=== PATIENT | female | born 1945 | race Caucasian/White ===

== ENCOUNTER 2024-06-28 00:30 | Day surgery (SDC) | payer MEDICARE, SELFPAY ==
[2024-06-22 15:25] VITALS: BMI 44.2
--- OUTSIDE RECORDS SUMMARY | 2024-06-28 00:34 | XMS_ITS ---
Author Organization [facility] Care Team Providers Care Supervisor Ore Dressing Name Role Phone Preet Medina Unavailable Unavailable Prince Barba Unavailable Unavailable Allergies and adverse reactions Code CodeSystem Substance Reaction Severity StartDate Concern Status TAPE Unknown 06/08/2017 active Care Team Name Role Address Phone Organization Dates Prince Barba PCP [address] [place], [address], [place] (Office): : [facility] 05/18/2018 - 06/06/2020 Preet Medina Attending Physician [address], [address], [place] (Cell): [facility] 05/18/2018 - 06/06/2020 Immunizations Immunization Status Vaccine Details Vaccine Code CodeSystem Date Notes Influenza completed Influenza, high-dose, split virus, quadrivalent, injectable, preservative free 197 CVX created date: 01/09/2020 administer ed date: 12/29/2019 Influenza completed Influenza, high-dose, split virus, quadrivalent, injectable, preservative free lotNumber: [id number] expiry: 09/13/2019 Mfg: Seqirus afluria quadrivalent Given 0.5 ml Right Deltoid intramuscularly 197 CVX created date: 01/15/2019 consent date: 01/15/2019 administer ed date: 01/10/2019 Educated by samanta esparza on 01/09/2019 Influenza completed Influenza, high-dose, split virus, quadrivalent, injectable, preservative free lotNumber: [id number] expiry: 09/15/2018 Mfg: Afluria Given 0.5 ml Left Deltoid intramuscularly 197 CVX created date: 01/07/2018 consent date: 01/07/2018 administer ed date: 01/07/2018 Influenza normal Influenza, high-dose, split virus, quadrivalent, injectable, preservative free 197 CVX created date: 06/21/2017 consent date: 06/21/2017 Pneumovax Dose 1 normal created date: 06/21/2017 consent date: 06/21/2017 2015 TB 2 Step Mantoux Skin Test completed tuberculin skin test; unspecified formulation lotNumber: [id number] expiry: 11/05/2019 Mfg: sonofil pasteur limited Given 0.1 ml Right Forearm intradermally Step 2 of Multi-step with next step required 98 CVX created date: 07/17/2017 consent date: 07/17/2017 administer ed date: 07/17/2017 TB 2 Step Mantoux Skin Test completed tuberculin skin test; unspecified formulation lotNumber: [id number] expiry: 02/11/2018 Mfg: Sanofi Pasteur Given 0.1 ml Left Forearm intradermally Step 1 of Multi-step with next step required 98 CVX created date: 06/11/2017 consent date: 06/11/2017 administer ed date: 06/09/2017 SARS-COV-2 (COVID-19) completed lotNumber: [id number] expiry: 08/25/2020 Mfg: Pfizer Given 1.0 dose Right Deltoid intramuscularly Step 2 of Multi-step with next step required created date: 05/27/2020 consent date: 05/27/2020 administer ed date: 05/20/2020 SARS-COV-2 (COVID-19) completed lotNumber: [id number] expiry: 05/27/2020 Mfg: Pfizer Given 1.0 dose Left Deltoid intramuscularly Step 1 of Multi-step with next step required created date: 04/15/2020 consent date: 04/15/2020 administer ed date: 04/08/2020 Educated by on 04/02/2020 Mental Status Section Date Assessment Total Score Description 06/06/2020 CAM 0 No delirium ind icated 05/10/2020 BIMS 15 cognitively int act CAM 0 No delirium ind icated PHQ-9 02 minimal depress ion Problems Problem # Description Date of onset Resolved Date Code CodeSystem Concern Status 1 COVID-19 04/28/[address] active 2 CONTACT WITH AND (SUSPECTED) EXPOSURE TO OTHER VIRAL COMMUNICABLE DISEASES 04/03/[address] active 3 COUGH 04/03/[address] active 4 DYSPNEA, UNSPECIFIED 04/03/[address] active 5 FEVER, UNSPECIFIED 04/03/[address] active 6 ACQUIRED ABSENCE OF OTHER SPECIFIED PARTS OF DIGESTIVE TRACT 01/09/[address] active 7 CALCULUS OF GALLBLADDER WITH ACUTE CHOLECYSTITIS WITH OBSTRUCTION 01/09/2004/28/[address] completed 8 OBESITY, UNSPECIFIED 01/09/[address] active 9 TYPE 2 DIABETES MELLITUS WITH DIABETIC NEUROPATHY, UNSPECIFIED 01/09/[address] active 10 METHICILLIN RESISTANT STAPHYLOCOCCUS AUREUS INFECTION THE CAUSE OF DISEASES CLASSIFIED ELSEWHERE 02/04/20 19 05/10/[address] completed 11 ATHEROSCLEROTIC HEART DISEASE OF [place] CORONARY ARTERY WITHOUT ANGINA PECTORIS 05/18/[address] active 12 CHRONIC EMBOLISM AND THROMBOSIS OF UNSPECIFIED DEEP VEINS OF LOWER EXTREMITY, BILATERAL 05/18/[address] active 13 CONSTIPATION, UNSPECIFIED 05/18/[address] active 14 DEPENDENCE ON WHEELCHAIR 05/18/[address] active 15 HALF-WAY (CURRENT) USE OF ASPIRIN 05/18/[address] active 16 MORBID (SEVERE) OBESITY DUE TO EXCESS CALORIES 05/18/[address] active 17 OTHER SPECIFIED SOFT TISSUE DISORDERS 05/18/[address] active 18 PERIPHERAL VASCULAR DISEASE, UNSPECIFIED 05/18/[address] active 19 UNSPECIFIED COMBINED SYSTOLIC (CONGESTIVE) AND DIASTOLIC (CONGESTIVE) HEART FAILURE 05/18/[address] active 20 ENCOUNTER FOR IMMUNIZATION 01/08/20 18 05/26/[address] completed 21 ALLERGY, UNSPECIFIED, SEQUELA 09/15/[address] active 22 ESSENTIAL (PRIMARY) HYPERTENSION 09/15/[address] active 23 OSTEOARTHRITIS 09/15/19 18 10/11/[address] completed 24 AGE-RELATED OSTEOPOROSIS WITHOUT CURRENT PATHOLOGICAL FRACTURE 06/09/[address] active 25 ANEMIA, UNSPECIFIED 06/09/[address] active 26 BILATERAL PRIMARY OSTEOARTHRITIS OF KNEE 06/09/[address] active 27 CELLULITIS OF UNSPECIFIED PART OF LIMB 06/09/19 18 05/26/[address] completed 28 DIFFICULTY IN WALKING, NOT ELSEWHERE CLASSIFIED 06/09/[address] active 29 GASTRO-ESOPHAGEAL REFLUX DISEASE WITHOUT ESOPHAGITIS 06/09/[address] active 30 IRRITABLE BOWEL SYNDROME, UNSPECIFIED 06/09/[address] active 31 MIXED HYPERLIPIDEMIA 06/09/[address] active 32 MUSCLE WEAKNESS (GENERALIZED) 06/09/[address] active 33 NONINFECTIVE GASTROENTERITIS AND COLITIS, UNSPECIFIED 06/09/19 18 05/26/[address] completed 34 OVERACTIVE BLADDER 06/09/[address] active 35 PAIN IN LEFT KNEE 06/09/[address] active 36 PAIN IN RIGHT KNEE 06/09/[address] active 37 REPEATED FALLS 06/09/[address] active 38 TYPE 2 DIABETES MELLITUS WITHOUT COMPLICATIONS 06/09/[address] active 39 URINARY TRACT INFECTION, SITE NOT SPECIFIED 06/09/19 18 05/26/[address] completed Reason for Referral No Reasons for Referral Entered Social History Social History Observation Description Start Date End Date Code Code System Current Smoking Status Tobacco smoking consumption unknown 532770713 SNOMED CT Sex Assigned At Female 1945 97142-0 [facility] Vital Signs Code Code System Vitals Name Values and Units Timing Information 2339-0 [facility] Blood Sugar Ridjp=792.0 Units=mg/dL 06/06/2020 99935-2 [facility] Pain Level Value=3.0 06/06/2020 9279-1 [facility] Respiratory Rate Value=18.0 Units=/m in 06/06/2020 8310-5 [facility] Body Temperature Value=97.1 Units= F 06/06/2020 8867-4 [facility] Heart rate Value=78.0 Units=/min 01/2021 14678-7 [facility] O2 % dC Oximetry Value=94.0 Units= % 06/06/2020 8462-4 [facility] Blood Pressure-Diastolic Value=77 Un its=mmHg 06/05/2020 8480-6 [facility] Blood Pressure-Systolic Xlakg=458 Un its=mmHg 06/05/2020 48980-2 [facility] Weight Gboyg=315.4 Units=Lbs 05/2020 8302-2 [facility] Height Value=65.0 Units=Inches 06/10/2017
--- OUTSIDE RECORDS SUMMARY | 2024-06-28 00:34 | XMS_ITS | Clinical Summary ---
Author Organization [facility] Address [address] [place] [address] Care Team Providers Care Foreman Shipping Department Name Role Phone Prince Barba MD Primary Care Provider [phone] Source Comments [facility],non-owned Affiliates and Associated Physician Practices is amultiple site organization consisting of ambulatory clinics and hospital sitesin [place], [place], [place] and [place]. This disclosure is being madepursuant to the Care Everywhere program and may not contain all information available regarding this patient. Last updated 17.[facility] Allergies Active Allergy Reactions Criticality Noted Date Comments Adhesive Sensitivity Rash Medium 06/05/2017 Medications * Be aware that medications may not be up to date on this document. Alwaysverify current medications with the patient. Medication Sig Dispensed Refills Start Date End Date Status insulin glargine (LANTUS) penIndications:Typ e 2 Diabetes Mellitus Inject 50 Units subcutaneously at bedtime Reasons: Type 2 Diabetes Active pantoprazole EC (PROTONIX) 40 MG tabletIndications: Gastroesophageal Reflux Disease Take 40 mg by mouth once daily Reasons: Gastroesophageal Reflux Disease Active Multiple Vitamins-Minerals (SENIOR MULTIVITAMIN PLUS PO) Take 1 tablet by mouth at bedtime Active silver sulfADIAZINE (SILVADENE) 1 % cream Apply to affected area once daily Apply as directed Active simvastatin (ZOCOR) 10 MG tabletIndications: Hyperlipidemia Take 10 mg by mouth at bedtime Reasons: High Amount of Fats in the Blood Active metoprolol succinate XL 24hr (TOPROL XL) 25 MG tablet Take 25 mg by mouth once daily Take with 50mg for total of 75mg/day Active metoprolol succinate XL 24hr (TOPROL XL) 50 MG tabletIndications: Hypertension Take 50 mg by mouth once daily Take with 25mg for total of 75mg/day Reasons: High Blood Pressure Disorder Active cetirizine (ZYRTEC) 10 MG tablet Take 10 mg by mouth once daily Active Miconazole Nitrate 2 % Use once daily As directed Active dicyclomine (BENTYL) 10 MG capsuleIndications :muscle spasms Take 10 mg by mouth 2 times daily Reasons: muscle spasms Active oxybutynin (DITROPAN) 5 MG tabletIndications: Overactive Bladder Take 5 mg by mouth 2 times daily Reasons: Overactive Bladder Active mesalamine CR (PENTASA) 500 MG capsuleIndications :Ulcerative Colitis Take 1,000 mg by mouth 2 times daily Reasons: Ulcerated Colon Active insulin lispro (HUMALOG;ADMELOG) 100 UNIT/ML penIndications:Typ e 2 Diabetes Mellitus Inject subcutaneously 4 times daily - before meals & nightly 61-150 = 0 units 151-200 = 2 units 201-250 = 4 units 251-300 = 6 units 301-350 = 8 units 351-400 = 10 units 401-999 = call 911 Reasons: Type 2 Diabetes Active sodium chloride (OCEAN NASAL SPRAY) 0.65 % nasal spray Villanueva 2 sprays into the nose 6 times daily while awake Active aspirin (ASPIRIN) 81 MG chew tablet Take 1 tablet by mouth once daily 01/10/2020 Active isosorbide mononitrate CR 24hr (IMDUR) 30 MG tablet Take 1 tablet by mouth once daily 01/10/2020 Active gabapentin (NEURONTIN) 300 MG capsule Take 1 capsule by mouth 2 times daily 01/09/2020 Active hydrALAZINE (APRESOLINE) 100 MG tablet Take 1 tablet by mouth 2 times daily 01/09/2020 Active amLODIPine (NORVASC) 10 MG tablet Take 1 tablet by mouth once daily 01/10/2020 Active furosemide (LASIX) 40 MG tablet Take 1 tablet by mouth once daily 01/10/2020 Active Active Problems Problem Noted Date Diagnosed Date Sepsis 12/27/2019 Acute encephalopathy 12/27/2019 Immunizations Name Administration Dates Next Due INFLUENZA VACCINE, HIGH-DOSE , QUADR. (FLUZONE HIGH-DOSE QUADRIVALENT; 65Y+), 0.7 ML (HD-IIV4) 12/29/2019 Social History Tobacco Use Types Packs/Day Years Used Date Smoking Tobacco: Never Smokeless Tobacco: Never Sex and Gender Information Value Date Recorded Sex Assigned at Not on file Gender Identity Not on file Sexual Orientation Not on file Last Filed Vital Signs Vital Sign Reading Time Taken Comments Blood Pressure 153/69 01/09/2020 3:22 PM CDT Pulse 88 01/09/2020 3:22 PM CDT Temperature 36.9 C (98.5 F) 01/09/2020 3:22 PM CDT Respiratory Rate 18 01/09/2020 3:22 PM CDT Oxygen Saturation 91% 01/09/2020 3:22 PM CDT Inhaled Oxygen Concentration - - Weight 135.2 kg (298 lb) 01/09/2020 4:40 AM CDT Height 165.1 cm (5' 5 ) 12/31/2019 7:59 PM CDT Body Mass Index 49.59 12/31/2019 7:59 PM CDT Plan of Treatment Health Maintenance Due Date Last Done Comments BONE DENSITY TESTING 1945 DTAP/TDAP/TD VACCINES (1 - Tdap) 02/04/1964 PNEUMOCOCCAL VACCINE 50+ (1 of 1 - PCV) 1995 ZOSTER VACCINE (1 of 2) 1995 Respiratory Syncytial Virus (RSV) Vaccine Pt: or over 60 yrs (1 - 1-dose 75+ series) 02/04/2020 COVID-19 VACCINE (1 - 2023- season) 2023 INFLUENZA VACCINE (#1) 2023 0, 01/11/2017, 02/07/2016, Additional history exists DEPRESSION SCREENING 03/29/2024 MEDICARE AWV CALENDAR YEAR 2024 HEPATITIS B VACCINE Aged Out No longe r eligible based on patient's age to complete this topic HIB VACCINE Aged Out No longer eligi ble based on patient's age to complete this topic HPV VACCINE Aged Out No longer eligi ble based on patient's age to complete this topic MENINGOCOCCAL (Group B) VACCINE SHARED DECISION-MAKING Aged Out No longer eligible based on patient's age to complete this topic MENINGOCOCCAL GROUPS A/C/Y/W VACCINE Aged Out No longer eligible based on patient's age to complete this topic Advance Directives Documents on File Type Date Recorded Patient [place] [employer] Expl anation Adv Directive/Living Will/POA 01/12/2020 7:15 PM * Full Code (Latest Code Status on File) Date Activated Date Inactivated Comments 12/27/2019 6:15 AM 01/09/2020 5:14 PM Care Teams Foreman Shipping Department Relationship Specialty Start Date End Date Prince Barba MD PCP - General Family Medicine 12/27/19
[2024-06-28 11:28] VITALS: BP 140/61; PULSE 81; RESP 18; TEMP 35.6; O2SAT 98; BMI 42.5
[2024-06-28] MEDS: LACTATED RINGERS 1,000 ML 150 ML IV CONT (11:49)
[2024-06-28] MEDS: DEXTROSE 50% 25 GM/50 ML SYRINGE IV PUSH (11:54)
[2024-06-28 12:11] LABS: Glucose Point of Care 54 mg/dl (65-105)
[2024-06-28 12:11] LABS: Glucose Point of Care 117 mg/dl (65-105)
--- NOTE | 2024-06-28 12:27 | PM.HPGS ---
History of Present Illness History of Present Illness Consent: Risks, benefits, and alternatives have been discussed and questions answered. Patient agrees to proceed with procedure. Chief complaint: Nausea,GERD Narrative: Faye Wilson is a 79 year old female with nausea, here for egd Review of Systems Review of Systems: All systems reviewed & are unremarkable except as noted in HPI and below PMFSH Past Medical History Medical History (Updated 06/27/24 @ 13:36 by Morales Macias DO) Diabetes type 2, controlled DVT (deep venous thrombosis) PVD (peripheral vascular disease) Hyperlipidemia Hypertension Crohn's disease IBS (irritable bowel syndrome) GERD (gastroesophageal reflux disease) Nausea & vomiting Family History Family History Father Family history of coronary artery disease, Onset Age: 33 Social History Social History Smoking status: Never smoker Alcohol intake: never Substance use: never Substance use type: does not use Living arrangements: halfway Spiritual care concerns: No Meds Home Medications and Allergies Home Medications ?Medication ?Instructions ?Recorded ?Confirmed ?Type albuterol sulfate 90 mcg/actuation 1 inh inhalation Q4H 04/26/24 06/28/24 History aerosol inhaler (Ventolin HFA) amlodipine 5 mg tablet (Norvasc) 5 mg PO DAILY 04/26/24 06/28/24 History aspirin 81 mg tablet,delayed 81 mg PO DAILY 04/26/24 06/28/24 History release (Adult Low Dose Aspirin) atorvastatin 40 mg tablet (Lipitor) 40 mg PO DAILY 04/26/24 06/28/24 History cetirizine 5 mg tablet 5 mg PO DAILY PRN allergy symptoms 04/26/24 06/22/24 History dicyclomine 10 mg capsule 10 mg PO BID 04/26/24 06/28/24 History gabapentin 300 mg capsule 300 mg PO DAILY 04/26/24 06/28/24 History insulin lispro 100 unit/mL 1 sliding scale dose subcut 04/26/24 06/28/24 History subcutaneous half-unit pen USEASDIRECTD (Humalog Josh KwikPen (U-100)) isosorbide dinitrate 20 mg tablet 20 mg PO BID 04/26/24 06/28/24 History loperamide 2 mg capsule 2 mg PO Q6H PRN loose stool 04/26/24 06/22/24 History magnesium oxide 500 mg capsule 500 mg PO DAILY 04/26/24 06/28/24 History mesalamine 500 mg capsule,extended 1,000 mg PO BID 04/26/24 06/28/24 History release (Pentasa) ondansetron 4 mg disintegrating 4 mg PO Q8H 04/26/24 06/28/24 History tablet spironolactone 25 mg tablet 25 mg PO DAILY 04/26/24 06/28/24 History Allergies Allergy/AdvReac Type Severity Reaction Status Date / Time adhesive tape Allergy Unknown Unknown Verified 06/28/24 11:34 Vital Signs Vital Signs - 24 hr 06/28/24 11:28 Temperature 96.0 F L Pulse Rate 81 Respiratory Rate 18 Blood Pressure 140/61 Pulse Oximetry 98 Oxygen Delivery Room Air Exam Const: General: cooperative and comfortable HENMT: Head: normal to inspection Neck: Neck: normal visual inspection Assessment and Plan Assessment and plan (1) Nausea & vomiting: Code(s): R11.2 - Nausea with vomiting, unspecified Status: Acute Assessment and Plan: egd with bx
--- NOTE | 2024-06-28 12:28 | P.PNAN_ITS ---
Anes - Initial Pre Proc Eval Procedure: Operation Date: 06/28/24 13:00 Proposed Procedures p Esophagogastroduodenoscopy - Raghu Ernst MD Date/Time: 06/28/24 12:28 Surgeon: Raghu Ernst MD Pre Op Diagnosis: Nausea,GERD Patient Data Age: 79 Gender: F Height: 1.63 m Weight: 112.5 kg Last Vital Signs Temp 35.6 C L 06/28/24 11:28 Pulse 81 06/28/24 11:28 Resp 18 06/28/24 11:28 BP 140/61 06/28/24 11:28 Pulse Ox 98 06/28/24 11:28 O2 Del Method Room Air 06/28/24 11:28 Allergies Allergy/AdvReac Type Severity Reaction Status Date / Time adhesive tape Allergy Unknown Unknown Verified 06/28/24 11:34 Home Medications ?Medication ?Instructions ?Recorded ?Confirmed ?Type albuterol sulfate 90 mcg/actuation 1 inh inhalation Q4H 04/26/24 06/28/24 History aerosol inhaler (Ventolin HFA) amlodipine 5 mg tablet (Norvasc) 5 mg PO DAILY 04/26/24 06/28/24 History aspirin 81 mg tablet,delayed 81 mg PO DAILY 04/26/24 06/28/24 History release (Adult Low Dose Aspirin) atorvastatin 40 mg tablet (Lipitor) 40 mg PO DAILY 04/26/24 06/28/24 History cetirizine 5 mg tablet 5 mg PO DAILY PRN allergy symptoms 04/26/24 06/22/24 History dicyclomine 10 mg capsule 10 mg PO BID 04/26/24 06/28/24 History gabapentin 300 mg capsule 300 mg PO DAILY 04/26/24 06/28/24 History insulin lispro 100 unit/mL 1 sliding scale dose subcut 04/26/24 06/28/24 History subcutaneous half-unit pen USEASDIRECTD (Humalog Josh KwikPen (U-100)) isosorbide dinitrate 20 mg tablet 20 mg PO BID 04/26/24 06/28/24 History loperamide 2 mg capsule 2 mg PO Q6H PRN loose stool 04/26/24 06/22/24 History magnesium oxide 500 mg capsule 500 mg PO DAILY 04/26/24 06/28/24 History mesalamine 500 mg capsule,extended 1,000 mg PO BID 04/26/24 06/28/24 History release (Pentasa) ondansetron 4 mg disintegrating 4 mg PO Q8H 04/26/24 06/28/24 History tablet spironolactone 25 mg tablet 25 mg PO DAILY 04/26/24 06/28/24 History Laboratory Tests 06/28/24 06/28/24 11:50 12:09 POC Capillary Glucose 54 L* mg/dl 117 H mg/dl (65-105) (65-105) Patient hx anesthesia problems: none Family hx anesthesia problems: none Results Review: All pre-operative results and documents have been reviewed as part of the pre- operative evaluation. [facility] Past Medical History Medical History Diabetes type 2, controlled DVT (deep venous thrombosis) PVD (peripheral vascular disease) Hyperlipidemia Hypertension Crohn's disease IBS (irritable bowel syndrome) GERD (gastroesophageal reflux disease) Nausea & vomiting Family History Family History Father Family history of coronary artery disease, Onset Age: 33 Social History Social History Smoking status: Never smoker Alcohol intake: never Substance use: never Substance use type: does not use Living arrangements: usp Spiritual care concerns: No Anes - Eval Final PreProcedure Day of Procedure 06/28/24 12:28 Patient weight: morbidly obese Heart: regular rate and rhythm Lungs: decreased breath sounds Airway: Mallampati scale class II Neurological: alert and oriented Last oral intake: >/= 8 hours ASA classification: III Emergent: no Anesthetic plan: proceed Results Review: All pre-operative results and documents have been reviewed as part of the pre- operative evaluation. Informed Consent: The patient's anesthetic plan and its attendant risks and benefits were discussed with the patient/family/POA. Questions were solicited and answers provided to the satisfaction of the patient/family/POA.
[2024-06-28 12:38] VITALS: BP 139/66; PULSE 90; RESP 18; O2SAT 97
[2024-06-28 12:48] VITALS: BP 131/73; PULSE 89; RESP 18; O2SAT 96
[2024-06-28 12:58] VITALS: BP 110/65; PULSE 85; RESP 16; O2SAT 98
== END 2024-06-28 13:18 | disposition home or self-care (01) ==
PROVIDERS: PCP Internal Medicine; Referring Provider Nurse Practitioner Family; Visit Provider Internal Medicine Gastroenterology
PROC: 0DJ08ZZ Inspection of Upper Intestinal Tract, Via Natural or Artificial Opening Endoscopic (ICD-10-PCS; CPT 43239; principal; 2024-06-28 13:00)
DX: K21.9 Gastro-esophageal reflux disease without esophagitis (principal); K29.50 Unspecified chronic gastritis without bleeding; E78.5 Hyperlipidemia, unspecified; I10 Essential (primary) hypertension; E11.9 Type 2 diabetes mellitus without complications; K58.9 Irritable bowel syndrome, unspecified; I73.9 Peripheral vascular disease, unspecified; E66.01 Morbid (severe) obesity due to excess calories; Z68.41 Body mass index [BMI] 40.0-44.9, adult; Z79.51 Long term (current) use of inhaled steroids; Z79.82 Long term (current) use of aspirin; Z79.4 Long term (current) use of insulin; Z86.718 Personal history of other venous thrombosis and embolism; Z82.49 Family history of ischemic heart disease and other diseases of the circulatory system
CPT/HCPCS: 43239; 82948; 88305; 88342; J2704; J7120